=== PATIENT | female | born 1950 | race Caucasian/White ===

== ENCOUNTER 2017-01-06 21:22 | Emergency (ER) | payer MEDICARE ==
[2017-01-06] MEDS ORDERED: PROMETHAZINE HCL 25 MG in DEXTROSE 5 % IN WATER 50 ML IV ONE ×2 (21:51)
--- NOTE | 2017-01-07 00:07 | ERNOTE ---
Abdominal HPI - General Chief Complaint: Abdominal Pain Time Seen by Provider: 01/06/17 21:25 Source: patient, EMS, RN notes reviewed, other - records from [facility] Exam Limitations: no limitations - Immun/Allergies/Home Medications Immunizatons: IMMUNIZATION HX Immunizations Up to Date Yes History of Influenza Vaccine No Allergies/Adverse Reactions: Allergies No Known Drug Allergies Allergy (Verified 01/06/17 21:30) Home Medications: HOME MEDICATIONS Prochlorperazine Maleate 5 - 10 mg PO Q6H PRN #40 tablet 01/07/17 [Last Taken Unknown] - History of Present Illness Narrative: Patient with persistent abdominal pain and intractable nausea and vomiting. Was at [facility] initially, treated with Zofran. CT scan showed gallbladder wall thickening with cholelithiasis and suspicions for acute cholecystitis. Day physician discussed the case with Dr. Nieves, surgeon stone paver at this facility. [facility] does not have a surgeon stone paver tonight, that ED physician requested to transfer the patient here for further evaluation and treatment, the day physician here accepted the patient for transfer. On arrival, I noted that the patient had only had Zofran for nausea and vomiting. I ordered Phenergan 25 mg IV for the patient. She had intense pain without emesis on the way here. Timing: getting worse, intermittent Quality: severe, burning Activities at Onset: activity Modifying Factors - (Worsens): Present: eating, vomiting Associated Symptoms: Present: loss of appetite Review of Systems - Review of Systems Constitutional: Present: recent illness EYE: Present: no symptoms reported ENT: Absent: ear pain, sore throat Respiratory: Absent: shortness of breath, cough Cardiology: Absent: chest pain Gastrointestinal/Abdominal: Present: nausea, vomiting, abdominal pain. Absent: diarrhea Genitourinary: Absent: frequency, pain, dysuria Musculoskeletal: Present: no symptoms reported Skin: Present: no symptoms reported Neurological: Absent: anxiety, depressed Endocrine: Present: no symptoms reported Hematologic/Lymphatic: Present: no symptoms reported Psych: Present: no symptoms reported - Patient's Past Medical History Patient History - Medical: Hypothyroidism, Other Patient History - Cardiac/Respiratory: Coronary Heart Disease, Hypertension Patient History - Cancer: No Hx of Cancer Patient History - Surgical Procedures: Coronary Bypass Surgery, Hysterectomy, Total Hip Replacement Patient History - Other: None - Social History Living Situations: home Psych History: No pertinent hx Smoking Status: Current every day smoker Alcohol Use: none Drug Use: none - Immunizations Immunizations Up to Date: Yes History of Influenza Vaccine: No Physical Exam - Physical Exam General Appearance: Present: wd/wn, alert, mild distress, thin, attentive for age Head Exam: Present: normal inspection, no evidence of injury Eye Exam: Normal inspection: bilateral, PERRL: bilateral, EOMI: bilateral Ears, Nose, Throat: Present: normal ENT inspection Neck: Present: normal inspection, nontender Respiratory: Present: no respiratory distress, normal breath sounds, no accessory muscle use Cardiovascular/Chest: Present: regular rate, rhythm, no murmur Gastrointestinal/Abdominal: Present: normal bowel sounds, tenderness - midepigastric Rectal Exam: Present: nontender, normal rectal tone, heme negative stool Back Exam: Present: normal inspection, normal range of motion Extremity Exam: Present: normal inspection, non-tender, normal range of motion Neurological Exam: Present: alert, oriented, normal mood/affect, no motor/ sensory deficits Skin Exam: Present: normal color, warm/dry ED Progress - Results and Orders Patient's Lab Results:: I have reviewed the patient's lab results. - Vital Signs Patient's Vital Signs:: I have reviewed the patient's vital signs. Vital Signs: Vital Signs 01/06/17 01/06/17 01/06/17 21:23 21:41 22:11 Temperature 36.8 C Pulse Rate 88 75 84 Respiratory 16 12 12 Rate Blood Pressure 136/70 144/63 147/70 O2 Sat by Pulse 98 99 99 Oximetry 01/06/17 01/06/17 01/06/17 22:42 23:18 23:43 Temperature Pulse Rate 87 85 80 Respiratory 12 18 15 Rate Blood Pressure 145/69 136/61 142/66 O2 Sat by Pulse 99 94 95 Oximetry - Progress/Reassessment Chief Complaint: Abdominal Pain Plan - Plan Plan: Patient resting comfortably. She is no longer nauseated and is resting comfortably. Has tolerated sips of water without any further emesis. I have reviewed her CT scan results and her lab findings, the only major abnormal is the CT scan with a possible cholecystitis. 03:30 01/07/2017 Patient has rested comfortably, no emesis the entire time here. Patient feels much better. We discussed at length the diet she needs to follow to keep her gallbladder happy, and where all she could seek treatment. The patient stated that she would rather proceed at home (in [place]) than up here away from home. She was brought here by EMS, has no way back to the hotel she was staying at in [place]. Her niece is driving with her, and is asleep at the hotel. Patient states she has no way to contact her right now. I will discharge the patient with referral to the local surgeon stone paver (Dr. Nieves) in case she decides to pursue this here. I will allow the patient to rest here in the ED until morning. Patient verbalized understanding. Departure Clinical Impression: Gallbladder attack - Departure Disposition: Home self-care Condition: Good Instructions: Low-Fat Diet for Pancreatitis or Gallbladder Conditions, Cholelithiasis, Cholecystitis, [id number], HIDA (Hepatobiliary) Scan Additional Instructions: Please follow a low fat diet as instructed. If your symptoms worsen then you need to be seen again. Referrals: Brenton Nieves MD [Staff Physician] - (Call tomorrow for an appointment in 3-5 days, or wait until you get home to [place] and follow up with your primary care provider there. ) Prescriptions: Prochlorperazine Maleate 5 - 10 mg PO Q6H PRN #40 tablet PRN Reason: Nausea And Vomiting
[2017-01-07 05:12] VITALS: BP 124/87
== END 2017-01-07 03:51 | disposition home or self-care (01) ==
LOC: ER 21:22
DX: K81.0 Acute cholecystitis (principal); F17.200 Nicotine dependence, unspecified, uncomplicated